=== PATIENT | female | born 1985 | race Caucasian/White ===

== ENCOUNTER 2021-12-15 06:35 | Emergency (ER) | payer SELFPAY ==
[2021-12-15 06:55] VITALS: BP 148/81; PULSE 80; RESP 16; TEMP 36.6; O2SAT 100; BMI 29.0
--- NOTE | 2021-12-15 07:32 | W.ED.BACK ---
HPI - Back Pain/Injury General: Chief Complaint: Back Pain/Injury Stated Complaint: Back pain Time Seen by Provider: 12/15/21 07:08 Source: patient Mode of arrival: ambulatory History of Present Illness: 36-year-old female presents emergency room complaining of left-sided back pain rating down her left leg.'s been ongoing for 5 days now. She seen a chiropractor with no relief. She cannot really recall anything that seem to precipitate the pain. She has not had any traumatic events recently. No previous advanced imaging. No previous back surgeries. No urinary retention or bowel incontinence. Pain radiates from the back through her buttock down the lateral portion of her leg down into her foot. MD elicited complaint: back pain Pertinent past history: prior back pain Onset (ago): day(s) (5) Timing: constant Severity: moderate Similar Symptoms Previously: Yes Quality: sharp Location: lumbar spine Radiation: left upper leg and left leg below the knee Exacerbating factors: movement, sitting upright and walking Relieving factors: supine Associated symptoms: Reports difficulty walking; Deny abdominal pain, arthralgias, chills, change in bowel habits, dysuria, fatigue, fecal incontinence, fever(s), hematuria, myalgias, nausea, numbness, syncope, tingling/numbness/burning, urinary frequency, urinary urgency, vomiting or weakness Review of Systems Const: Denies: fever(s), chills, fatigue or malaise ENMT: Denies: throat pain, ear or mastoid pain, nasal discharge or nasal congestion Card: Reports: chest pain; Denies: palpitations, irregular heart rhythm or syncope Resp: Denies: dyspnea, productive cough or non-productive cough GI: Denies: abdominal pain, nausea, vomiting, fecal incontinence or change in bowel habits : Denies: dysuria, urinary urgency or hematuria Skin/Breast: Denies: rash or pruritus Neuro: Reports: difficulty walking PFSH ED PFSH: Medical History (Updated 12/25/21 @ 10:36 by Rush Gillis DO) Chronic back pain Surgical History (Updated 12/25/21 @ 10:36 by Rush Gillis DO) No pertinent past surgical history Physical Exam Const: GENERAL APPEARANCE: cooperative and comfortable ORIENTATION/CONSCIOUSNESS: Yes awake, Yes oriented to person, Yes oriented to place and Yes oriented to time HENMT: COMMON NORMALS: normocephalic, atraumatic and hearing grossly normal bilaterally HEAD & SCALP: normocephalic and atraumatic Resp: COMMON NORMALS: normal respiratory effort, No retractions, No use of accessory muscles and clear to auscultation bilaterally AUSCULTATION: clear to auscultation bilaterally Cardio: COMMON NORMALS: regular rate, regular rhythm and No murmurs present (Cardio) RATE: regular rate RHYTHM: regular rhythm GI: COMMON NORMALS: Soft to palpation and No hepatosplenomegaly present AUSCULTATION: Yes normoactive bowel sounds PALPATION: Yes Soft to palpation, No Tenderness to palpation present (GI), No Guarding due to palpation present (GI) and Yes No hepatosplenomegaly present Extremity: COMMON NORMALS: normal to inspection, capillary refill normal, no clubbing, cyanosis or edema, no calf tenderness and no pedal edema Neuro: SENSORIUM/ORIENTATION: Yes oriented to person, Yes oriented to place and Yes oriented to time OTHER: Deep tendon reflexes +1 for bilateral lower extremities neurovascular tact flexion 5-5 sensation mildly positive left leg. Skin: COMMON NORMALS: no rashes or lesions noted GENERAL SKIN EXAM: no rashes or lesions noted Course Vital Signs: Vital signs: Vital Signs Temperature 97.8 F 12/15/21 06:55 Pulse Rate 78 12/15/21 08:24 Respiratory Rate 14 12/15/21 08:24 Blood Pressure 122/76 12/15/21 08:24 Pulse Oximetry 96 12/15/21 08:24 Oxygen Delivery Me thod 12/15/21 06:55 MDM - Back Pain/Injury Medical Decision Making Improved with medications given we will refer patient to orthopedics taper diclofenac Lyrica 75 twice daily tizanidine as needed return if is worsening problems. Discussed with patient if she has fecal incontinence and retention Medical Records I reviewed the patient's medical records. Labs I reviewed the patient's lab results. Discharge Plan Discharge Patient Disposition: Home Clinical Impression: Lumbar radiculopathy Condition: Stable Prescriptions: New prednisone 20 mg tablet 20 mg PO TID Qty: 15 0RF Rx Instructions: 1 p.o. 3 times daily x3 days, 1 p.o. twice daily x2 days, 1 p.o. daily x2 days diclofenac sodium 75 mg tablet,delayed release (DR/EC) 75 mg PO Q12H PRN (Reason: pain) Qty: 20 0RF pregabalin 75 mg capsule 75 mg PO BID Qty: 60 0RF tizanidine 4 mg tablet 4 mg PO Q6H PRN (Reason: muscle spasticity) Qty: 20 0RF Rx Instructions: do not exceed 3 doses per 24 hrs Discharge Orders: Discharge ED (Routine); Ordered 12/15/21 Ordered By: Rush Gillis Referrals: Yovani Barrios MD [Primary Care Provider] - Discharge Diet: Usual diet Discharge Activity: Increase activity as tolerated Patient Instructions: Lumbar Radiculopathy (ED), Opioid Safety, Pain Management Activity Restrictions/Additional Instructions: Follow-up with your primary care doctor. Case management make arrangements for you to follow-up with orthopedic spine surgery Coding Level of Care Code ED Client Support Representative for Liudmila Mcgovern
[2021-12-15 07:36] VITALS: RESP 16
[2021-12-15] MEDS: ketorolac 30 mg/mL INJ IVP (07:36)
[2021-12-15] MEDS: morphine 4 mg/mL SDV 1 mL IVP (07:36)
[2021-12-15] MEDS: dexamethasone 10 mg/mL INJ IVP (07:36)
[2021-12-15] MEDS: orphenadrine 30 mg/mL Inj 2 mL 60 MG IVP (07:37)
[2021-12-15] MEDS: sodium chloride 0.9% (100 ml) 100 ML (07:37)
[2021-12-15 08:24] VITALS: BP 122/76; PULSE 78; RESP 14; O2SAT 96
--- NOTE | 2021-12-17 11:08 | DCPLANNER ---
Addendum entered by Chantell Coles 01/17/22 05:54: Patient had an outpatient MRI scheduled for 01.07.22 - patient did not attend appointment. manager ui received the following message from the ortho regarding follow up appointment: Attempted to call patient//no vm is set up//mailed letter for patient to call back and schedule an appt after her MRI Original Note: manager ui had message to schedule an outpatient MRI for patient and a follow up appointment for patient with ortho. manager ui faxed signed order to centralized scheduling, who will nancy patient with appointment information. manager ui sent patients information to the front office staff at ortho. Patients information will be printed and reviewed. Clinic will call patient with appointment information.
== END 2021-12-15 08:26 | disposition home or self-care (01) ==
PROVIDERS: Emergency Provider Family Medicine; PCP General Practice
DX: M54.16 Radiculopathy, lumbar region (principal)
CPT/HCPCS: 96374; 96375; 99284; J1100; J1885; J2270; J2360

== ENCOUNTER 2022-08-06 08:10 | Outpatient (CLI) | payer SELFPAY ==
[2022-08-06 08:34] LABS: HF Add Manual Diff No
[2022-08-06 08:38] LABS: Basophils # 0.1 10^3/uL (0.0-0.1); Basophils % 0.8 %; Eosinophils # 0.1 10^3/uL (0.0-0.8); Eosinophils % 1.3 %; Hematocrit 43.2 % (37.0-47.0); Hemoglobin 14.8 g/dL (11.5-15.3); Lymphocytes # 2.4 10^3/uL (0.8-4.8); Lymphocytes % 31.9 %; Mean Corpuscular HGB Conc 34.3 g/dL (30.0-36.0); Mean Corpuscular Hemoglobin 35.2 pg (28.0-34.0); Mean Corpuscular Volume 102.6 fl (81-99); Mean Platelet Volume 10.5 fL (7.4-10.4); Monocytes # 0.6 10^3/uL (0.2-0.9); Monocytes % 8.1 %; Neutrophils # 4.36 10^3/uL (1.8-7.7); Neutrophils % 57.6 %; Nucleated Red Blood Cells % 0 %; Platelet Count 195 10^3/cmm (130-400); Red Blood Count 4.21 10^6/uL (4.1-5.3); Red Cell Distribution Width 12.8 % (12.1-15.1); White Blood Count 7.6 10^3/uL (4.0-10.0)
[2022-08-06 09:06] LABS: Alanine Aminotransferase 34 U/L (0-33); Albumin Level 4.3 g/dL (3.5-5.2); Alkaline Phosphatase 109 U/L (35-105); Anion Gap 13.2 (5-19); Aspartate Amino Transferase 32 U/L (0-32); Blood Urea Nitrogen 10 mg/dL (6-20); Carbon Dioxide 26 mmol/L (22-29); Chloride 104 mmol/L (98-107); Chol HDL Ratio 2.19 mg/dL (0.0-4.40); Cholesterol 175 mg/dL (0-200); Globulin 2.5 g/dL (1.3-4.6); Glomerular Filtration Rate 113.1 mL/min (90-130); Glucose 99 mg/dL (65-115); HDL Cholesterol 80 mg/dL (60-100); LDL Cholesterol Calculated 82 mg/dL (50-129); LDL HDL Ratio 1.03 RATIO (0.00-3.22); Osmolality Calculated 287 mOsm/kg (285-295); Potassium 4.2 mmol/L (3.5-5.1); Sodium 139 mmol/L (136-145); Thyroid Stimulating Hormone 1.61 uIU/mL (0.27-4.20); Total Bilirubin 0.3 mg/dL (0.15-1.2); Total Protein 6.8 g/dL (6.6-8.7); Triglycerides 67 mg/dL (0-150)
[2022-08-06 09:27] LABS: Estmated Average Glucose 88; Hemoglobin A1C 4.7 % (4.0-6.0)
== END 2022-08-06 08:11 | disposition home or self-care (01) ==
PROVIDERS: PCP Nurse Practitioner Family; Visit Provider Dermatology
DX: Z01.89 Encounter for other specified special examinations (principal)
CPT/HCPCS: 36415